=== PATIENT | male | born 1930 | race Caucasian/White ===

== ENCOUNTER → 2018-06-12 | Outpatient (CLI) | payer MEDICARE, BC ==
[~2018-06-12] VITALS: Ht 170.2 cm; Wt 66.4 kg
[~2018-06-12] MED LIST: DIGOXIN125 MCG PO; IMIQUIMOD5%; LEVOTHYROXIN0.075 MG PO; [UNRECOGNIZED DRUG - OTHER] PO
[2018-06-12 10:55] VITALS: BP 104/72
[2018-06-12 11:28] LABS: HEMATOCRIT 31.8 % (42.0-52.0); HEMOGLOBIN 10.3 g/dL (13.5-18.0); MEAN CELL VOLUME 91 fl (78-100); MEAN CORPUSCULAR HEMOGLOBIN 29 pg (27-31); MEAN CORPUSCULAR HGB CONC 32 g/dL (33-37); PLATELET COUNT 154 K/mm3 (130-400); RED BLOOD COUNT 3.51 M/mm3 (4.20-5.60); RED CELL DISTRIBUTION WIDTH 14.2 % (11.5-14.5); WHITE BLOOD COUNT 4.1 K/mm3 (4.8-10.8)
[2018-06-12 11:39] LABS: PROTHROMBIN TIME 9.3 SECONDS (9.0-12.0)
[2018-06-12 11:40] LABS: ALBUMIN 4.2 g/dL (3.5-5.0); CALCIUM 9.9 mg/dL (8.4-10.2); POTASSIUM 4.7 mmol/L (3.6-5.0); TOTAL BILIRUBIN 0.2 mg/dL (0.2-1.3); TOTAL PROTEIN 7.1 g/dL (6.3-8.2)
[2018-06-12 12:02] LABS: URINE APPEARANCE CLEAR; URINE BILIRUBIN NEGATIVE (NEGATIVE); URINE BLOOD NEGATIVE (NEGATIVE); URINE COLOR YELLOW; URINE GLUCOSE NEGATIVE (NEGATIVE); URINE KETONE NEGATIVE (NEGATIVE); URINE LEUKOCYTE ESTERASE NEGATIVE (NEGATIVE); URINE NITRATE NEGATIVE (NEGATIVE); URINE PROTEIN(semi-quant) TRACE mg/dL (NEGATIVE); URINE UROBILINOGEN NORMAL (NORMAL); URINE WBC 0-1 /hpf (0-3)
[2018-06-12 12:07] LABS: BAND 1 % (0-10); LYMPHOCYTE 5 % (20-51); MONOCYTE 9 % (3-10); NEUTROPHILS 85 % (42-75)
[2018-06-12 13:18] LABS: DIGOXIN 0.8 ng/mL (0.8-2.0)
== END ==
LOC: AMSURD 10:42
PROVIDERS: Internal Medicine
DX: Z01.818 Encounter for other preprocedural examination (principal); C44.202 Unspecified malignant neoplasm of skin of right ear and external auricular canal; C83.30 Diffuse large B-cell lymphoma, unspecified site; I48.91 Unspecified atrial fibrillation; D64.9 Anemia, unspecified; Z95.828 Presence of other vascular implants and grafts

== ENCOUNTER → 2019-10-28 | Outpatient (CLI) | payer MEDICARE, BC ==
[2018-07-01 13:55] VITALS: BP 116/80
[2019-10-28 16:47] LABS: HEMATOCRIT 32.3 % (42.0-52.0); HEMOGLOBIN 10.1 g/dL (13.5-18.0); MEAN CELL VOLUME 91 fl (78-100); MEAN CORPUSCULAR HEMOGLOBIN 28 pg (27-31); MEAN CORPUSCULAR HGB CONC 31 g/dL (33-37); MEAN PLATELET VOLUME 10.5 fl (7.4-10.4); PLATELET COUNT 156 K/mm3 (130-400); RED BLOOD COUNT 3.57 M/mm3 (4.20-5.60); RED CELL DISTRIBUTION WIDTH 14.9 % (11.5-14.5); WHITE BLOOD COUNT 3.4 K/mm3 (4.8-10.8)
[2019-10-28 16:52] LABS: ALBUMIN 3.8 g/dL (3.4-4.8)
[2019-10-28 16:53] LABS: POTASSIUM 4.5 mmol/L (3.5-5.1); SODIUM 137 mmol/L (136-145)
[2019-10-28 16:54] LABS: CALCIUM 9.9 mg/dL (8.3-10.5)
[2019-10-28 16:55] LABS: GLUCOSE 145 mg/dL (75-110); TOTAL PROTEIN 7.2 g/dL (6.2-8.1)
[2019-10-28 16:56] LABS: CARBON DIOXIDE 24 mmol/L (23-31)
[2019-10-28 16:57] LABS: D-DIMER 1.06 mg/L FEU (0.15-0.50); TOTAL BILIRUBIN 0.3 mg/dL (0.2-1.2)
[2019-10-28 17:00] LABS: AST-SGOT 22 U/L (5-34)
[2019-10-28 17:01] LABS: MAGNESIUM 1.96 mg/dL (1.60-2.60)
[2019-10-28 17:02] LABS: ALT/SGPT 10 U/L (0-55)
[2019-10-28 17:08] LABS: CKMB ISOENZYME 2.4 ng/mL (0.0-3.5)
[2019-10-28 17:10] LABS: TROPONIN-I < 0.03 ng/mL (<0.030)
[2019-10-28 17:30] LABS: LYMPHOCYTE 11 % (20-51); MONOCYTE 14 % (3-10); NEUTROPHILS 74 % (42-75)
== END ==
LOC: LAB 13:22
PROVIDERS: Internal Medicine
DX: R06.02 Shortness of breath (principal); R07.89 Other chest pain

== ENCOUNTER 2020-10-18 14:51 | Emergency (ER) | payer MEDICARE, BC ==
[2020-10-18] MEDS ORDERED: LATANOPROST 2.2.5 ML OU (15:03)
[2020-10-18 15:31] LABS: HEMATOCRIT 31.7 % (42.0-52.0); HEMOGLOBIN 10.6 g/dL (13.5-18.0); MEAN CELL VOLUME 96 fl (78-100); MEAN CORPUSCULAR HEMOGLOBIN 32 pg (27-31); MEAN CORPUSCULAR HGB CONC 33 g/dL (33-37); MEAN PLATELET VOLUME 9.7 fl (7.4-10.4); PLATELET COUNT 131 K/mm3 (130-400); RED BLOOD COUNT 3.31 M/mm3 (4.20-5.60); WHITE BLOOD COUNT 8.4 K/mm3 (4.8-10.8)
[2020-10-18 15:41] LABS: ALBUMIN 3.9 g/dL (3.4-4.8)
[2020-10-18 15:42] LABS: POTASSIUM 4.9 mmol/L (3.5-5.1)
[2020-10-18 15:46] LABS: TOTAL BILIRUBIN 0.2 mg/dL (0.2-1.2)
[2020-10-18 15:52] LABS: TOTAL PROTEIN 7.5 g/dL (6.2-8.1)
[2020-10-18 15:53] LABS: CALCIUM 10.2 mg/dL (8.3-10.5)
[2020-10-18 16:00] LABS: DIGOXIN 0.7 ng/mL (0.8-2.0)
[2020-10-18 16:20] LABS: BAND 1 % (0-10); LYMPHOCYTE 5 % (20-51); MONOCYTE 7 % (3-10); NEUTROPHILS 85 % (42-75)
[2020-10-18 16:21] LABS: URINE APPEARANCE CLOUDY; URINE COLOR T; URINE PROTEIN(semi-quant) TRACE mg/dL (NEGATIVE)
[2020-10-18 16:22] LABS: URINE BILIRUBIN NEGATIVE (NEGATIVE); URINE BLOOD TRACE (NEGATIVE); URINE GLUCOSE NEGATIVE (NEGATIVE); URINE KETONE NEGATIVE (NEGATIVE); URINE LEUKOCYTE ESTERASE 2+ (NEGATIVE); URINE MUCUS PRESENT (NOT PRESENT); URINE NITRATE NEGATIVE (NEGATIVE); URINE UROBILINOGEN NORMAL (NORMAL); URINE WBC >50 /hpf (0-3)
[2020-10-18] MEDS ORDERED: CEFDINIR300 MG PO (16:47)
[2020-10-18 17:12] VITALS: BP 118/60
== END 2020-10-18 17:13 | disposition home or self-care (01) ==
LOC: ED 14:51
PROVIDERS: Physician Assistant
DX: N39.0 Urinary tract infection, site not specified (principal); I48.91 Unspecified atrial fibrillation; E03.9 Hypothyroidism, unspecified; Z79.890 Hormone replacement therapy; Z20.822 Contact with and (suspected) exposure to COVID-19
CPT/HCPCS: J0696; J1644; J7030

== ENCOUNTER → 2020-10-31 | Outpatient (CLI) | payer MEDICARE, BC ==
[2020-10-18 17:12] VITALS: BP 118/60
[~2020-10-31] MED LIST changes: +CEFDINIR300 MG PO; +LATANOPROST 2.2.5 ML OU; +NATURAL IRON65 MG PO; +VITAMIN C500 MG
[2020-10-31 17:52] LABS: URINE APPEARANCE CLEAR; URINE COLOR YELLOW
[2020-10-31 17:53] LABS: URINE BILIRUBIN NEGATIVE (NEGATIVE); URINE BLOOD NEGATIVE (NEGATIVE); URINE GLUCOSE NEGATIVE (NEGATIVE); URINE KETONE NEGATIVE (NEGATIVE); URINE LEUKOCYTE ESTERASE 1+ (NEGATIVE); URINE MUCUS PRESENT (NOT PRESENT); URINE NITRATE NEGATIVE (NEGATIVE); URINE PROTEIN(semi-quant) NEGATIVE (NEGATIVE); URINE UROBILINOGEN NORMAL (NORMAL)
== END ==
LOC: LAB 16:35
PROVIDERS: Internal Medicine
DX: N39.0 Urinary tract infection, site not specified (principal)

== ENCOUNTER 2020-11-10 10:16 | Emergency (ER) | payer MEDICARE, BC ==
[~2020-11-10 10:16] MED LIST changes: -NATURAL IRON65 MG PO; -VITAMIN C500 MG
[2020-11-10 10:53] LABS: HEMATOCRIT 32.3 % (42.0-52.0); HEMOGLOBIN 10.6 g/dL (13.5-18.0); MEAN CELL VOLUME 95 fl (78-100); MEAN CORPUSCULAR HEMOGLOBIN 31 pg (27-31); MEAN CORPUSCULAR HGB CONC 33 g/dL (33-37); MEAN PLATELET VOLUME 9.8 fl (7.4-10.4); PLATELET COUNT 124 K/mm3 (130-400); RED BLOOD COUNT 3.41 M/mm3 (4.20-5.60); RED CELL DISTRIBUTION WIDTH 13.1 % (11.5-14.5); WHITE BLOOD COUNT 8.9 K/mm3 (4.8-10.8)
[2020-11-10 11:01] LABS: ALBUMIN 3.8 g/dL (3.4-4.8); LYMPHOCYTE 4 % (20-51); MONOCYTE 7 % (3-10); NEUTROPHILS 89 % (42-75); POTASSIUM 4.7 mmol/L (3.5-5.1)
[2020-11-10 11:03] LABS: CALCIUM 10.6 mg/dL (8.3-10.5)
[2020-11-10 11:04] LABS: TOTAL PROTEIN 7.2 g/dL (6.2-8.1)
[2020-11-10 11:06] LABS: TOTAL BILIRUBIN 0.3 mg/dL (0.2-1.2)
[2020-11-10 11:34] LABS: URINE APPEARANCE CLOUDY; URINE BILIRUBIN NEGATIVE (NEGATIVE); URINE BLOOD TRACE (NEGATIVE); URINE COLOR YELLOW; URINE GLUCOSE NEGATIVE (NEGATIVE); URINE KETONE NEGATIVE (NEGATIVE); URINE LEUKOCYTE ESTERASE 2+ (NEGATIVE); URINE NITRATE NEGATIVE (NEGATIVE); URINE PROTEIN(semi-quant) TRACE mg/dL (NEGATIVE); URINE UROBILINOGEN NORMAL (NORMAL); URINE WBC >50 /hpf (0-3)
[2020-11-10 12:01] VITALS: BP 102/68
== END 2020-11-10 12:01 | disposition home or self-care (01) ==
LOC: ED 10:16
PROVIDERS: Nurse Practitioner
DX: N39.0 Urinary tract infection, site not specified (principal); I48.91 Unspecified atrial fibrillation; E03.9 Hypothyroidism, unspecified; Z79.890 Hormone replacement therapy; Z79.899 Other long term (current) drug therapy

== ENCOUNTER → 2020-11-16 | Outpatient (CLI) | payer MEDICARE, BC ==
[2020-11-10 12:01] VITALS: BP 102/68
[~2020-11-16] MED LIST changes: +NATURAL IRON65 MG PO; +VITAMIN C500 MG
[2020-11-16 16:44] LABS: URINE COLOR YELLOW
[2020-11-16 16:45] LABS: URINE APPEARANCE CLEAR; URINE BILIRUBIN NEGATIVE (NEGATIVE); URINE BLOOD NEGATIVE (NEGATIVE); URINE GLUCOSE NEGATIVE (NEGATIVE); URINE KETONE NEGATIVE (NEGATIVE); URINE LEUKOCYTE ESTERASE 1+ (NEGATIVE); URINE NITRATE NEGATIVE (NEGATIVE); URINE PROTEIN(semi-quant) TRACE mg/dL (NEGATIVE); URINE UROBILINOGEN NORMAL (NORMAL)
== END ==
LOC: LAB 16:16
PROVIDERS: Internal Medicine
DX: N39.0 Urinary tract infection, site not specified (principal)

== ENCOUNTER → 2020-12-04 | Outpatient (CLI) | payer MEDICARE, BC ==
[2020-11-10 12:01] VITALS: BP 102/68
[2020-12-04 11:26] LABS: HEMATOCRIT 30.1 % (42.0-52.0); HEMOGLOBIN 10.1 g/dL (13.5-18.0); MEAN CELL VOLUME 94 fl (78-100); MEAN CORPUSCULAR HEMOGLOBIN 32 pg (27-31); MEAN CORPUSCULAR HGB CONC 34 g/dL (33-37); MEAN PLATELET VOLUME 9.8 fl (7.4-10.4); PLATELET COUNT 124 K/mm3 (130-400); RED BLOOD COUNT 3.21 M/mm3 (4.20-5.60); RED CELL DISTRIBUTION WIDTH 13.2 % (11.5-14.5); WHITE BLOOD COUNT 2.7 K/mm3 (4.8-10.8)
[2020-12-04 11:37] LABS: ALBUMIN 3.8 g/dL (3.4-4.8); POTASSIUM 4.9 mmol/L (3.5-5.1)
[2020-12-04 11:38] LABS: CALCIUM 10.5 mg/dL (8.3-10.5)
[2020-12-04 11:39] LABS: TOTAL PROTEIN 6.9 g/dL (6.2-8.1)
[2020-12-04 11:41] LABS: TOTAL BILIRUBIN 0.3 mg/dL (0.2-1.2)
[2020-12-04 11:45] LABS: DIGOXIN 0.7 ng/mL (0.8-2.0)
[2020-12-04 11:46] LABS: MAGNESIUM 2.03 mg/dL (1.60-2.60)
[2020-12-04 14:12] LABS: LYMPHOCYTE 19 % (20-51); MONOCYTE 12 % (3-10); NEUTROPHILS 65 % (42-75)
[2020-12-04 22:02] LABS: TESTOSTERONE 193 ng/dL (221-716)
== END ==
LOC: LAB 11:07
PROVIDERS: Internal Medicine
DX: I48.91 Unspecified atrial fibrillation (principal); K90.9 Intestinal malabsorption, unspecified; E29.1 Testicular hypofunction

== ENCOUNTER → 2021-01-15 | Outpatient (CLI) | payer MEDICARE, BC | LOC: LAB 15:02 | DX: E29.1 Testicular hypofunction (principal) ==

== ENCOUNTER → 2021-02-16 | Outpatient (CLI) | payer MEDICARE, BC ==
[2021-02-16 11:02] LABS: CALCIUM 11.1 mg/dL (8.3-10.5)
[2021-02-16 11:15] LABS: HEMATOCRIT 33.2 % (42.0-52.0); HEMOGLOBIN 10.7 g/dL (13.5-18.0); MEAN CELL VOLUME 100 fl (78-100); MEAN CORPUSCULAR HEMOGLOBIN 32 pg (27-31); MEAN CORPUSCULAR HGB CONC 32 g/dL (33-37); MEAN PLATELET VOLUME 10.1 fl (7.4-10.4); PLATELET COUNT 126 K/mm3 (130-400); RED BLOOD COUNT 3.32 M/mm3 (4.20-5.60); RED CELL DISTRIBUTION WIDTH 14.1 % (11.5-14.5); WHITE BLOOD COUNT 3.5 K/mm3 (4.8-10.8)
[2021-02-16 11:41] LABS: LYMPHOCYTE 20 % (20-51); MONOCYTE 10 % (3-10); NEUTROPHILS 68 % (42-75)
== END ==
LOC: LAB 10:38
PROVIDERS: Internal Medicine Cardiovascular Disease
DX: I95.9 Hypotension, unspecified (principal)

== ENCOUNTER 2021-05-08 19:39 | Emergency (ER) | payer MEDICARE, BC ==
[~2021-05-08] VITALS: Ht 180.3 cm; Wt 67.8 kg
[~2021-05-08 19:39] MED LIST changes: -NATURAL IRON65 MG PO; -VITAMIN C500 MG
[2021-05-08] MEDS ORDERED: NATURAL IRON65 MG PO (20:33)
[2021-05-08] MEDS ORDERED: VITAMIN C500 MG (20:33)
[2021-05-08 21:08] LABS: HEMATOCRIT 34.1 % (42.0-52.0); HEMOGLOBIN 11.1 g/dL (13.5-18.0); MEAN CELL VOLUME 98 fl (78-100); MEAN CORPUSCULAR HEMOGLOBIN 32 pg (27-31); MEAN CORPUSCULAR HGB CONC 33 g/dL (33-37); MEAN PLATELET VOLUME 9.4 fl (7.4-10.4); PLATELET COUNT 112 K/mm3 (130-400); RED BLOOD COUNT 3.47 M/mm3 (4.20-5.60); WHITE BLOOD COUNT 3.8 K/mm3 (4.8-10.8)
[2021-05-08 21:17] LABS: ALBUMIN 3.5 g/dL (3.4-4.8); POTASSIUM 4.6 mmol/L (3.5-5.1)
[2021-05-08 21:18] LABS: CALCIUM 10.4 mg/dL (8.3-10.5)
[2021-05-08 21:20] LABS: TOTAL PROTEIN 6.4 g/dL (6.2-8.1)
[2021-05-08 21:21] LABS: TOTAL BILIRUBIN 0.3 mg/dL (0.2-1.2)
[2021-05-08 21:31] LABS: URINE WBC 0 /hpf (0-3)
[2021-05-08 21:43] LABS: LYMPHOCYTE 5 % (20-51); MONOCYTE 16 % (3-10); NEUTROPHILS 77 % (42-75)
[2021-05-08 21:44] LABS: URINE APPEARANCE CLEAR; URINE COLOR YELLOW
[2021-05-08 21:47] LABS: URINE BILIRUBIN NEGATIVE (NEGATIVE); URINE BLOOD NEGATIVE (NEGATIVE); URINE GLUCOSE NEGATIVE (NEGATIVE); URINE KETONE NEGATIVE (NEGATIVE); URINE LEUKOCYTE ESTERASE NEGATIVE (NEGATIVE); URINE NITRATE NEGATIVE (NEGATIVE); URINE PROTEIN(semi-quant) NEGATIVE (NEGATIVE); URINE UROBILINOGEN NORMAL (NORMAL)
[2021-05-08 21:48] LABS: URINE MUCUS PRESENT (NOT PRESENT)
[2021-05-08 23:51] VITALS: BP 123/64
== END 2021-05-08 23:51 | disposition home or self-care (01) ==
LOC: ED 19:39
PROVIDERS: Nurse Practitioner Family
DX: N18.9 Chronic kidney disease, unspecified (principal); E03.9 Hypothyroidism, unspecified; Z20.822 Contact with and (suspected) exposure to COVID-19; Z79.890 Hormone replacement therapy
CPT/HCPCS: J7030

== ENCOUNTER 2021-05-10 21:33 | Emergency (ER) | payer MEDICARE, BC ==
[~2021-05-10] VITALS: Ht 175.3 cm; Wt 66.0 kg
[~2021-05-10 21:33] MED LIST changes: +NATURAL IRON65 MG PO; +VITAMIN C500 MG
[2021-05-10 22:22] LABS: HEMATOCRIT 33.4 % (42.0-52.0); HEMOGLOBIN 10.8 g/dL (13.5-18.0); MEAN CELL VOLUME 99 fl (78-100); MEAN CORPUSCULAR HEMOGLOBIN 32 pg (27-31); MEAN CORPUSCULAR HGB CONC 32 g/dL (33-37); MEAN PLATELET VOLUME 10.5 fl (7.4-10.4); PLATELET COUNT 109 K/mm3 (130-400); RED BLOOD COUNT 3.38 M/mm3 (4.20-5.60); WHITE BLOOD COUNT 4.7 K/mm3 (4.8-10.8)
[2021-05-10 22:23] LABS: ALBUMIN 3.5 g/dL (3.4-4.8)
[2021-05-10 22:24] LABS: POTASSIUM 4.6 mmol/L (3.5-5.1)
[2021-05-10 22:25] LABS: CALCIUM 10.3 mg/dL (8.3-10.5)
[2021-05-10 22:26] LABS: TOTAL PROTEIN 6.5 g/dL (6.2-8.1)
[2021-05-10 22:28] LABS: TOTAL BILIRUBIN 0.3 mg/dL (0.2-1.2)
[2021-05-10 22:48] LABS: BAND 1 % (0-10)
[2021-05-10 22:48] LABS: URINE APPEARANCE CLEAR; URINE BILIRUBIN NEGATIVE (NEGATIVE); URINE BLOOD NEGATIVE (NEGATIVE); URINE COLOR YELLOW; URINE GLUCOSE NEGATIVE (NEGATIVE); URINE KETONE NEGATIVE (NEGATIVE); URINE LEUKOCYTE ESTERASE TRACE (NEGATIVE); URINE NITRATE NEGATIVE (NEGATIVE); URINE PROTEIN(semi-quant) TRACE mg/dL (NEGATIVE); URINE UROBILINOGEN NORMAL (NORMAL); URINE WBC 0-1 /hpf (0-3)
[2021-05-10 22:49] LABS: LYMPHOCYTE 7 % (20-51); MONOCYTE 28 % (3-10); NEUTROPHILS 64 % (42-75)
[2021-05-11] MEDS ORDERED: CEFDINIR300 MG PO (00:35)
[2021-05-11 01:03] VITALS: BP 119/68
== END 2021-05-11 01:03 | disposition home or self-care (01) ==
LOC: ED 21:33
PROVIDERS: Nurse Practitioner Family
DX: N18.9 Chronic kidney disease, unspecified (principal); R50.9 Fever, unspecified; I48.91 Unspecified atrial fibrillation; E03.9 Hypothyroidism, unspecified; D64.9 Anemia, unspecified; Z79.890 Hormone replacement therapy; Z79.899 Other long term (current) drug therapy; Z85.72 Personal history of non-Hodgkin lymphomas
CPT/HCPCS: J0696; J7030

== ENCOUNTER → 2021-05-11 | Outpatient (CLI) | payer MEDICARE, BC | LOC: LAB 08:12 | DX: R50.9 Fever, unspecified (principal) ==

== ENCOUNTER → 2021-05-18 | Outpatient (CLI) | payer MEDICARE, BC ==
[2021-05-18 08:59] LABS: HEMATOCRIT 36.5 % (42.0-52.0); MEAN CELL VOLUME 97 fl (78-100); MEAN CORPUSCULAR HEMOGLOBIN 32 pg (27-31); MEAN CORPUSCULAR HGB CONC 33 g/dL (33-37); MEAN PLATELET VOLUME 9.3 fl (7.4-10.4); PLATELET COUNT 184 K/mm3 (130-400); RED BLOOD COUNT 3.78 M/mm3 (4.20-5.60); RED CELL DISTRIBUTION WIDTH 12.6 % (11.5-14.5); WHITE BLOOD COUNT 3.6 K/mm3 (4.8-10.8)
[2021-05-18 09:01] LABS: POTASSIUM 4.7 mmol/L (3.5-5.1)
[2021-05-18 09:02] LABS: CALCIUM 11.4 mg/dL (8.3-10.5)
[2021-05-18 09:05] LABS: TOTAL BILIRUBIN 0.4 mg/dL (0.2-1.2)
[2021-05-18 09:14] LABS: URINE APPEARANCE CLEAR; URINE BILIRUBIN NEGATIVE (NEGATIVE); URINE BLOOD NEGATIVE (NEGATIVE); URINE COLOR YELLOW; URINE GLUCOSE NEGATIVE (NEGATIVE); URINE KETONE NEGATIVE (NEGATIVE); URINE LEUKOCYTE ESTERASE NEGATIVE (NEGATIVE); URINE NITRATE NEGATIVE (NEGATIVE); URINE PROTEIN(semi-quant) TRACE mg/dL (NEGATIVE); URINE UROBILINOGEN NORMAL (NORMAL); URINE WBC 0-1 /hpf (0-3)
[2021-05-18 09:15] LABS: URINE MUCUS PRESENT (NOT PRESENT)
[2021-05-18 09:39] LABS: LYMPHOCYTE 13 % (20-51); MONOCYTE 13 % (3-10); NEUTROPHILS 67 % (42-75); POLYCHROMASIA 1+
[2021-05-18 09:55] LABS: ERYTHROCYTE SEDIMENTATION RATE 75 mm/hr (0-20)
== END ==
LOC: LAB 07:35 → VAS 07:35 → RAD 08:00
PROVIDERS: Internal Medicine
DX: R50.9 Fever, unspecified (principal)